=== PATIENT | male | born 1925 | race Caucasian/White ===

== ENCOUNTER 2016-06-01 16:05 | Emergency (ER) | payer SELFPAY ==
[~2016-06-01] VITALS: Wt 74.0 kg
[~2016-06-01 16:05] MED LIST: CHOL100062 PO; MECL-77 PO; Nifedipine PO; OMEG1CAP90 PO
== END 2016-06-02 00:58 | disposition left against medical advice (07) ==
LOC: E/R 16:05
DX: Z53.21 Procedure and treatment not carried out due to patient leaving prior to being seen by health care provider (principal)